=== PATIENT | male | born 1995 | race American Indian/Alaskan Native ===

== ENCOUNTER 2019-03-16 11:07 | Emergency (ER) | payer OTHER ==
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
[2019-03-16 11:41] VITALS: BP 130/57
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
== END 2019-03-16 14:32 | disposition home or self-care (01) ==
LOC: ED 11:07
DX: M25.561 Pain in right knee (principal); M25.562 Pain in left knee; Z79.1 Long term (current) use of non-steroidal anti-inflammatories (NSAID); F12.10 Cannabis abuse, uncomplicated; V87.7XXA Person injured in collision between other specified motor vehicles (traffic), initial encounter; Y93.89 Activity, other specified; Y92.488 Other paved roadways as the place of occurrence of the external cause; Y99.8 Other external cause status
CPT/HCPCS: 99283